=== PATIENT | female | born 1955 | race Caucasian/White ===

== ENCOUNTER 2020-10-28 20:13 | Inpatient (IN) | payer MEDICARE ==
[~2020-10-28] VITALS: Ht 165.1 cm; Wt 57.3 kg
[~2020-10-28 20:13] MED LIST: PREDNISONE 10 M10 MG PO
[2020-10-28 21:05] LABS: HEMOGLOBIN 10.4 gm/dl (12.3-15.3); RED BLOOD COUNT 2.91 M/UL (4.00-5.10); WHITE BLOOD COUNT 14.8 K/UL (4.5-11.0)
[2020-10-28 21:33] LABS: BUN/CREATININE RATIO 22 (0-10)
[2020-10-29] MEDS ORDERED: ATIVAN2 MG PO (00:50)
[2020-10-29] MEDS ORDERED: PROVENTIL HFA6.7 GM INH (00:52)
[2020-10-29] MEDS ORDERED: NORVASC5 MG PO (00:53)
[2020-10-29] MEDS ORDERED: LOPERAMIDE2 M1 PO (00:53)
[2020-10-29] MEDS ORDERED: ALBUTEROL2.5 MG/3 M INH (00:54)
[2020-10-29] MEDS ORDERED: LEVOTHYROXINE300 MCG PO (00:55)
[2020-10-29] MEDS ORDERED: LOPRESSOR 50 MG50 MG PO (00:56)
[2020-10-29] MEDS ORDERED: ATORVASTATIN CA40 MG PO (00:56)
[2020-10-29] MEDS ORDERED: ECOTRIN81 MG PO (17:40)
[2020-10-30 02:58] LABS: HEMOGLOBIN 9.5 gm/dl (12.3-15.3); RED BLOOD COUNT 2.72 M/UL (4.00-5.10); WHITE BLOOD COUNT 11.1 K/UL (4.5-11.0)
[2020-10-30 03:25] LABS: BUN/CREATININE RATIO 36 (0-10)
[2020-10-30 16:42] LABS: BORDETELLA PARAPERTUSSIS Not Detected (Not Detectd); BORDETELLA PERTUSSIS Not Detected (Not Detectd); CHLAMYDIA PNEUMONIAE Not Detected (Not Detectd); CORONAVIRUS HKU1 Not Detected (Not Detectd); CORONAVIRUS NL63 Not Detected (Not Detectd); CORONAVIRUS OC43 Not Detected (Not Detectd); CORONOAVIRUS 229E Not Detected (Not Detectd); HUMAN METAPNEUMOVIRUS Not Detected (Not Detectd); HUMAN RHINOVIRUS/ENTEROVIRUS Not Detected (Not Detectd); INFLUENZA A Not Detected (Not Detectd); INFLUENZA B Not Detected (Not Detectd); MYCOPLASMA PNEUMONIAE Not Detected (Not Detectd); PARAINFLUENZA VIRUS 1 Not Detected (Not Detectd); PARAINFLUENZA VIRUS 2 Not Detected (Not Detectd); PARAINFLUENZA VIRUS 3 Not Detected (Not Detectd); PARAINFLUENZA VIRUS 4 Not Detected (Not Detectd); RESPIRATORY SYNCYTIAL VIRUS Not Detected (Not Detectd)
[2020-10-30 17:38] LABS: SARS-CoV-2 NOT DETECTED (Not Detectd)
[2020-10-31 06:42] LABS: HEMOGLOBIN 10.5 gm/dl (12.3-15.3); RED BLOOD COUNT 2.95 M/UL (4.00-5.10)
[2020-10-31 06:57] LABS: BUN/CREATININE RATIO 41 (0-10)
--- NOTE | 2020-11-01 01:29 | NUR ---
IS AT THE BEDSIDE, DID NOTE THAT HE HAS MEMORY ISSUES AND CONFUSION WELL. STATES HE DOES NOT REMEMBER THIS NURSE BEING IN THE ROOM LAST NIGHT, WHICH I WAS IN THE ROOM NUMEROUS TIMES AND SPOKE WITH HIM EXTENSIVELY. ALSO CONVERSATION IS DISORGANIZED AND CONTINUES TO BE PARONOID AND JEALOUS ABOUT HIS , WHOM IS THE PATIENT. STATES HE THOUGHT SOMEONE WAS TRYING TO SEE HER "PRIVATES" BUT USES [employer]. STATES I AM A JEALOUS MAN.
[2020-11-01 08:24] LABS: RED BLOOD COUNT 2.8 M/UL (4.00-5.10)
[2020-11-01 08:35] LABS: WHITE BLOOD COUNT 18.2 K/UL (4.5-11.0)
--- NOTE | 2020-11-02 02:15 | NUR ---
Patient arrived to ICU at this time. Insulin drip initiated per MD orders
[2020-11-02 04:21] LABS: HEMOGLOBIN 8.4 gm/dl (12.3-15.3); WHITE BLOOD COUNT 21.6 K/UL (4.5-11.0)
[2020-11-02 04:38] LABS: RED BLOOD COUNT 2.37 M/UL (4.00-5.10)
[2020-11-02 14:11] LABS: ORGANISM ID Not indicated. (.); SPECIMEN SOURCE Urine (.); STREPTOCOCCUS PNEUMONIAE AG Negative (Negative)
[2020-11-03 03:36] LABS: HEMOGLOBIN 7.5 gm/dl (12.3-15.3); WHITE BLOOD COUNT 24.7 K/UL (4.5-11.0)
[2020-11-03 03:57] LABS: BUN/CREATININE RATIO 51 (0-10)
[2020-11-03 04:55] LABS: RED BLOOD COUNT 2.1 M/UL (4.00-5.10)
[2020-11-03 13:46] LABS: BUN/CREATININE RATIO 57 (0-10)
[2020-11-04 06:20] LABS: HEMOGLOBIN 7.4 gm/dl (12.3-15.3); RED BLOOD COUNT 2.1 M/UL (4.00-5.10)
[2020-11-04 06:25] LABS: WHITE BLOOD COUNT 36.7 K/UL (4.5-11.0)
[2020-11-04 06:48] LABS: BUN/CREATININE RATIO 53 (0-10)
[2020-11-04 14:32] LABS: BUN/CREATININE RATIO 47 (0-10)
[2020-11-05 07:20] LABS: HEMOGLOBIN 8.2 gm/dl (12.3-15.3)
[2020-11-05 08:31] LABS: RED BLOOD COUNT 2.33 M/UL (4.00-5.10); WHITE BLOOD COUNT 45.3 K/UL (4.5-11.0)
--- NOTE | 2020-11-05 12:13 | NUR ---
UPON REPORT I WAS TOLD THAT 6120 HAD WENT INTO AFIB OVER NIGHT. ONCE I ASSESSED HER I SEEN THAT SHE WAS STILL IN AFIB AND HER HEARTRATE WAS 133 BPM. THE PATIENT WAS LETHARGIC AND NOT REACTIVE TO ANYTHING BUT PAIN AT 0700. AFTER ASSESSMENT I LEFT TO ASSESS MY OTHER PATIENT AND WHILE I WAS IN 6121 TELE CALLED ME AND TOLD ME THAT 6120s HEART RHYTHM HAD ST ELEVATIONS ONLY ON HER EKG. WHEN ASSESSING THE PATIENT I LISTENED TO HER HEART AND I NOTED THAT HER HEART WAS NOT BEATING AT 0807 I THEN FELT HER FEMORAL PULSE AND NOTED THAT THERE WAS NO PULSE. I THEN TOOK HER OFF THE BIPAP TO LISTEN FOR AIR MOVEMENT IN HER LUNGS. THERE WAS NO MOVEMENT AND DR ABARCA WAS CALLED BY A CO WORKER AT THIS TIME. ME AND ANOTHER CO-WORKER THEN CALLED HER TIME OF AT 0808 DUE TO NO PULSE ON PALPATION AND NO RESPIRATIONS HEARD. ONCE DETERMINED THE WAS CALLED AND NOTIFIED. THEN THE SON WAS CALLED BECAUSE THE TOLD ME THAT HE WOULD NEED A RIDE TO THE HOSPITAL. THE FAMILY THEN CAME TO VISIT AND THE [facility] WAS NOTIFIED TO COME AND GET THE PATIENT. THE PATIENT WAS PICKED UP AT 1150 FROM [facility].
== END 2020-11-05 08:08 | disposition expired | DRG 438 ==
LOC: ER1 20:13 → CCU 10-29 00:45 → CDU 10-29 00:45 → PROG CARE 10-29 00:45 → CCU 11-01 17:08 → PROG CARE 11-03 16:35
PROVIDERS: Emergency Medicine; Family Medicine; Internal Medicine; Internal Medicine Pulmonary Disease; ADMIT Internal Medicine
PROC: 5A09457 Assistance with Respiratory Ventilation, 24-96 Consecutive Hours, Continuous Positive Airway Pressure (ICD-10-PCS; 2020-10-28)
PROC: B24BZZ4 Ultrasonography of Heart with Aorta, Transesophageal (ICD-10-PCS; principal; 2020-10-29)
DX: K85.30 Drug induced acute pancreatitis without necrosis or infection (principal); A41.9 Sepsis, unspecified organism; G93.41 Metabolic encephalopathy; J96.21 Acute and chronic respiratory failure with hypoxia; I50.33 Acute on chronic diastolic (congestive) heart failure; N17.9 Acute kidney failure, unspecified; E87.0 Hyperosmolality and hypernatremia; D68.9 Coagulation defect, unspecified; E44.0 Moderate protein-calorie malnutrition; R64 Cachexia; I11.0 Hypertensive heart disease with heart failure; I46.8 Cardiac arrest due to other underlying condition; Z20.822 Contact with and (suspected) exposure to COVID-19; Z66 Do not resuscitate; E87.6 Hypokalemia; T36.4X5A Adverse effect of tetracyclines, initial encounter; Z51.5 Encounter for palliative care; E78.00 Pure hypercholesterolemia, unspecified; E86.0 Dehydration; J43.9 Emphysema, unspecified; F32.9 Major depressive disorder, single episode, unspecified; F41.9 Anxiety disorder, unspecified; E83.51 Hypocalcemia; I25.10 Atherosclerotic heart disease of native coronary artery without angina pectoris; D50.9 Iron deficiency anemia, unspecified; I71.9 Aortic aneurysm of unspecified site, without rupture; E03.9 Hypothyroidism, unspecified; K52.9 Noninfective gastroenteritis and colitis, unspecified; R41.3 Other amnesia; I48.91 Unspecified atrial fibrillation; Z87.891 Personal history of nicotine dependence; Z79.01 Long term (current) use of anticoagulants; Z90.49 Acquired absence of other specified parts of digestive tract; Z99.81 Dependence on supplemental oxygen; Z95.5 Presence of coronary angioplasty implant and graft; Z68.23 Body mass index [BMI] 23.0-23.9, adult
CPT/HCPCS: ECHO; 0240U; 36415; 36600; 51702; 70450; 71045; 71046; 71250; 74018; 76705; 80048; 80053; 80061; 80076; 81001; 82140; 82150; 82550; 82553; 82607; 82728; 82746; 82803; 83540; 83550; 83605; 83615; 83690; 83735; 83874; 83880; 84100; 84132; 84439; 84443; 84484; 84550; 85007; 85025; 85027; 85045; 85379; 85384; 85610; 85730; 86140; 86738; 87040; 87086; 87278; 87633; 87899; 93005; 93306; 94640; 94660; 94664; 94760; 96365; 96366; 96367; 96368; 96375; 97163; 99285; C9113; J0360; J0456; J0696; J1170; J1335; J1650; J1940; J2060; J2185; J2270; J2405; J2920; J2930; J3480; J3486; J7030; J7070; Q9967